=== PATIENT | female | born 1945 | race Caucasian/White ===

== ENCOUNTER → 2017-08-05 | Outpatient (CLI) | payer MEDICARE, OTHER ==
[2015-08-26 20:43] VITALS: BP 176/86
[~2017-08-05] MED LIST: AMLO5TAB2 PO; ASPI81TA50 PO; ATOR10TA PO; ESOM40CA PO; METO-239 PO; POTA10CA PO; SERT100T PO; SULF1TAB24 PO
--- NOTE | 2017-08-05 17:20 | RAD ---
LEFT UPPER EXTREMITY VENOUS DUPLEX EXAMINATION Clinical indications: Left arm pain and swelling Findings: Duplex sonography (including lamar scale evaluation and color flow and waveform spectral analysis) of the deep veins of the left upper extremity was performed. The study is technically difficult due to locked position of the left elbow and inability to raise arm. Therefore, the basilic vein and radial veins and a portion of the brachial veins are not visualized. The other veins that are visualized demonstrate normal compressibility and are patent with color Doppler flow. Therefore, there are no sonographic findings of deep venous thrombosis within these veins. Impression: Technically difficult and limited study. No deep venous thrombosis within the veins that are visualized of the left upper extremity.
--- NOTE | 2017-08-05 17:40 | RAD ---
CT study of the left elbow without contrast Clinical indications: Patient has fallen several times in the last few weeks. Left elbow joint is very swollen with bruising and pain. Technique: Noncontrast helical CT scanning of the left elbow was performed. Multiplanar 2-D reconstructions were generated in all 3 planes. PQRS Compliance Statement: One or more of the following individualized dose reduction techniques were utilized for this examination: 1. Automated exposure control 2. Adjustment of the mA and/or kV according to patient size 3. Use of iterative reconstruction technique Comparison: None available. Findings: There is a nondisplaced comminuted fracture of the olecranon process with intra-articular extension. No articular surface offset is evident. The ulnar trochlear joint compartment is well aligned otherwise. The radial capitellar joint compartment is aligned normally otherwise. No osteolytic process is seen. An elbow joint effusion is seen. Mild swelling of the olecranon bursa is seen. IMPRESSION: Posttraumatic acute fracture of the olecranon process of the left elbow.
== END | disposition home or self-care (01) ==
LOC: US 15:59
PROVIDERS: ATTEND Family Medicine
DX: M79.602 Pain in left arm (principal); R60.0 Localized edema; M25.522 Pain in left elbow; W01.0XXD Fall on same level from slipping, tripping and stumbling without subsequent striking against object, subsequent encounter
CPT/HCPCS: 73200; 93971

== ENCOUNTER → 2018-07-06 | Outpatient (CLI) | payer MEDICARE, OTHER ==
[2015-08-26 20:43] VITALS: BP 176/86
[~2018-07-06] MED LIST changes: -AMLO5TAB2 PO; +AMLO5TAB7 PO
--- NOTE | 2018-07-06 12:30 | RAD ---
EXAM: Abdomen sonogram HISTORY: Diarrhea TECHNIQUE: Sonographic imaging of the abdomen was performed. FINDINGS: The liver is enlarged. There is hepatic steatosis. Gallbladder is unremarkable. The common bile duct is normal in caliber. The kidneys are unremarkable. The pancreas is obscured due to bowel gas. The spleen is normal in size. The aorta and inferior vena cava are unremarkable. IMPRESSION: 1. Hepatic megaly and hepatic steatosis. 2. Obscured pancreas due to bowel gas. 3. Otherwise, unremarkable abdomen sonogram. Electronically signed by: Andria Grace MD (07/06/2018 12:27 PM) [id number]
== END | disposition home or self-care (01) ==
LOC: US 09:51
PROVIDERS: ATTEND Family Medicine
DX: K76.0 Fatty (change of) liver, not elsewhere classified (principal)
CPT/HCPCS: 76700

== ENCOUNTER 2020-08-07 15:25 | Inpatient (IN) | payer MEDICARE, OTHER ==
[~2020-08-07] VITALS: Ht 172.7 cm; Wt 69.5 kg
[~2020-08-07 15:25] MED LIST changes: +AMLO-186 PO; -AMLO5TAB7 PO
--- NOTE | 2020-08-07 15:53 | PHYS DOC ---
Past History Past Medical History: Other (ALONZO RODRIGUEZ APRN) Past Surgical History: Knee Replacement, Other (ALONZO RODRIGUEZ APRN) Alcohol Use: Occasionally Drug Use: None (ALONZO RODRIGUEZ APRN) General Adult EDM: Chief Complaint: SORE THROAT HPI: HPI: Patient is a 84-year-old female who presents with cough, sore throat, generalized weakness. Patient reports symptoms started 5 days ago. Patient was seen in 's office and was sent to the ED for further evaluation. Denies fever or shortness of breath. (ALONZO RODRIGUEZ APRN) Review of Systems: Review of Systems: Constitutional: Denies fever or chills Eyes: Denies change in visual acuity HENT: Denies nasal congestion, reports sore throat Respiratory: Reports cough, denies shortness of breath Cardiovascular: Denies chest pain or edema GI: Denies abdominal pain, nausea, vomiting, bloody stools or diarrhea : Denies dysuria Musculoskeletal: Denies back pain or joint pain Integument: Denies rash Neurologic: Denies headache, focal weakness or sensory changes Endocrine: Denies polyuria or polydipsia Lymphatic: Denies swollen glands Psychiatric: Denies depression or anxiety (ALONZO RODRIGUEZ APRN) Allergies: Allergies: Allergies Coded Allergies Type Severity Reaction Last Updated Verified No Known Drug Allergies 08/26/15 No (ALONZO RODRIGUEZ APRN) Physical Exam: PE: Constitutional: Well developed, well nourished, no acute distress, non-toxic appearance. [] HENT: Normocephalic, atraumatic, bilateral external ears normal, oropharynx moist, no oral exudates, nose normal. [] Eyes: PERRLA, EOMI, conjunctiva normal, no discharge. [] Neck: Normal range of motion, no tenderness, supple, no stridor. [] Cardiovascular:Heart rate regular rhythm, no murmur [] Lungs & Thorax: Bilateral breath sounds clear to auscultation [] Abdomen: Bowel sounds normal, soft, no tenderness, no masses, no pulsatile masses. [] Skin: Warm, dry, no erythema, no rash. [] Back: No tenderness, no CVA tenderness. [] Extremities: No tenderness, no cyanosis, no clubbing, ROM intact, no edema. [] Neurologic: Alert and oriented X 3, normal motor function, normal sensory function, no focal deficits noted. [] Psychologic: Affect normal, judgement normal, mood normal. [] (ALONZO RODRIGUEZ APRN) EKG: EKG: [] (ALONZO RODRIGUEZ APRN) Radiology/Procedures: Radiology/Procedures: [] (ALONZO RODRIGUEZ APRN) Heart Score: Risk Factors: Risk Factors: DM, Current or recent (<one month) smoker, HTN, HLP, family history of CAD, obesity. Risk Scores: Score 0 - 3: 2.5% MACE over next 6 weeks - Discharge Home Score 4 - 6: 20.3% MACE over next 6 weeks - Admit for Clinical Observation Score 7 - 10: 72.7% MACE over next 6 weeks - Early Invasive Strategies (ALONZO RODRIGUEZ APRN) Course & Med Decision Making: Course & Med Decision Making Pertinent Labs and Imaging studies reviewed. (See chart for details) [74 year old female presents with cough, sore throat. Dr. Collins sent patient to be seen in the ED after seeing him in the office today. Patient hypoxic on arrival. Placed on 2L NC. CTA ordered to r/o PE. Biliruben, AST/ALT elevated. CT Abdomen and Lipase ordered. Called Dr. Collins and updated him on liver enzymes. He still agrees with patient plan to be admitted to [facility]. ] (ALONZO RODRIGUEZ APRN) Dragon Disclaimer: Dragon Disclaimer: This electronic medical record was generated, in whole or in part, using a voice recognition dictation system. (ALONZO RODRIGUEZ APRN) Departure Departure: Impression: Primary Impression: Hypoxia Additional Impression: Person under investigation for COVID-19 Disposition: ADMITTED INPT THIS HOSP Condition: STABLE Referrals: FLORENCIA COLLINS MD (PCP) Attending Signature Attending Signature I have reviewed the PA/WATER TEAM LEADER's note and plan of care. I was available for consultation as needed during the patient's visit in the emergency department. I agree with the clinical impression, plan, and disposition. (LEVI MEREDITH DO) ALONZO RODRIGUEZ APRN Aug 07, 2020 15:53 LEVI MEREDITH DO Aug 08, 2020 05:46
[2020-08-07] MEDS ORDERED: IOHEXOL 350 MG/ML 100 ML VIAL. IV ONE (16:00)
[2020-08-07] MEDS ORDERED: CONTRAST GIVEN. MC PRN (16:15)
[2020-08-07 16:29] LABS: BASO % 0 % (0-3); EOS # 0.1 x10^3/uL (0.0-0.7); EOS % 2 % (0-3); HEMATOCRIT 48.9 % (36.0-47.0); HEMOGLOBIN 16.8 g/dL (12.0-15.5); LYMPH # 0.8 x10^3/uL (1.0-4.8); LYMPH % 10 % (24-48); MEAN CORPUSCULAR HEMOGLOBIN 31 pg (25-35); MEAN CORPUSCULAR HGB CONC 34 g/dL (31-37); MEAN CORPUSCULAR VOLUME 91 fL (79-100); MONO # 0.5 x10^3/uL (0.0-1.1); MONO % 7 % (0-9); NEUT # 6.2 x10^3uL (1.8-7.7); NEUT % 81 % (31-73); PLATELET COUNT 261 x10^3/uL (140-400); RED BLOOD COUNT 5.38 x10^6/uL (3.50-5.40); RED CELL DISTRIBUTION WIDTH 16.1 % (11.5-14.5); WHITE BLOOD COUNT 7.7 x10^3/uL (4.0-11.0)
[2020-08-07 16:43] LABS: MONONUCLEOSIS PATIENT NEGATIVE (NEGATIVE)
[2020-08-07] MEDS ORDERED: FAMOTIDINE 20 MG/2 ML VIAL IVP ONE (17:00)
[2020-08-07] MEDS ORDERED: KETOROLAC 15 MG/ML VIAL. IVP ONE (17:00)
[2020-08-07 17:03] LABS: INFLUENZA A PATIENT NEGATIVE (NEGATIVE); INFLUENZA B PATIENT NEGATIVE (NEGATIVE)
[2020-08-07 17:13] LABS: ALBUMIN 3.2 g/dL (3.4-5.0); ALBUMIN/GLOBULIN RATIO 0.7 (1.0-1.7); CALCIUM 10.3 mg/dL (8.5-10.1); CREATININE 1.2 mg/dL (0.6-1.0); GFR 44.2; TOTAL PROTEIN 7.6 g/dL (6.4-8.2)
[2020-08-07 17:17] LABS: POTASSIUM 2.8 mmol/L (3.5-5.1)
[2020-08-07] MEDS ORDERED: POTASSIUM CHLORIDE 20 MEQ TABLET.ER. PO ONE (17:30)
[2020-08-07] MEDS ORDERED: IV NORMAL SALINE 1,000ML 1,000 ML IV ONE (17:45)
[2020-08-07 17:58] LABS: MAGNESIUM 2.4 mg/dL (1.8-2.4)
--- NOTE | 2020-08-07 18:52 | RAD ---
Exam: CT of chest, abdomen and pelvis with contrast INDICATION: Hypoxia, concern for infection TECHNIQUE: Sequential axial images through the chest, abdomen and pelvis obtained following the admin istration of 60 mL of Isovue 370 IV contrast. Sagittal and coronal reformatted images were reconstruc murali from the axial data and reviewed. 3-D reformatted images were reconstructed from the axial data a nd reviewed. Comparisons: None FINDINGS: No enlarged mediastinal lymph nodes are identified. Heart size is normal. No pericardial effusion. Thoracic aorta has a normal course and caliber. There is extensive calcified and noncalcified plaque throughout the thoracic aorta some of which is peduncu lated and extends into the lumen in the aorta. Pulmonary artery is not enlarged. No pulmonary embolus identified within the main, lobar or segmental pulmonary arteries. Airways are patent. Mild bronchial wall thickening is noted. No consolidation or pneumothorax. Strand y opacities at dependent portion lungs likely representing atelectasis. Moderate centrilobular emphys ematous change noted probably at the upper lungs. No suspicious lung nodules are No pleural effusion or thickening. Liver, spleen, pancreas and adrenals are unremarkable. Kidneys demonstrate symmetric enhancement. No perinephric inflammation or hydronephrosis. No renal or ureteral calculi are identified. Bladder is distended and appears thin-walled. Uterus is not enlarged. No abnormal adnexal mass. Extensive diverticulosis at the sigmoid colon without evidence of acute diverticulitis. Appendix is n ot identified. No free intra-abdominal air or fluid. No obstruction. Abdominal aorta has a normal course and caliber. Abdominal vasculature is patent. No enlarged intra-abdominal lymph nodes are identified. No suspicious osseous lesions or acute fractures. Compression deformities involving the T12 and L2 manuel perior endplate. IMPRESSION: 1. No pulmonary embolus identified within the main, lobar or segmental pulmonary arteries. 2. 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 3. Extensive diverticulosis without evidence of acute diverticulitis. 4. No sequela of infection identified within the abdomen or pelvis. Exposure: One or more of the following in the visualized dose reduction techniques were utilized for this examination: 1. Automated exposure control 2. Adjustment of the MA and/or KV according to patient size 3. Use of iterative of reconstructive technique Electronically signed by: Ryan Waters MD (08/07/2020 6:50 PM) [facility]
[2020-08-07] MEDS ORDERED: MVI, ADULT NO.4 WITH VIT K 10 ML, FOLIC ACID INJ 1 MG, THIAMINE INJ 100 MG in IV NORMAL... IV ONE (20:30)
[2020-08-07] MEDS ORDERED: ELECTROLYTE (NON-ICU) PROTOCOL. MC PRN (21:30)
[2020-08-07 21:34] VITALS: BP 140/66
[2020-08-07 21:45] LABS: BILIRUBIN,URINE SMALL (NEG); CLARITY,URINE CLEAR; COLOR,URINE YELLOW; GLUCOSE,URINE NEG (NEG); NITRITE,URINE POS (NEG)
[2020-08-07] MEDS ORDERED: ZOLPIDEM 5 MG TABLET. PO PRN (21:45)
[2020-08-07] MEDS ORDERED: IV DEXTROSE 5% - 0.9 % NACL 1,000 ML IV SCH (21:45)
[2020-08-07 21:46] LABS: BACTERIA,URINE MANY /HPF (0-FEW); RBC,URINE RARE /HPF (0-2); SQUAMOUS EPITHELIAL CELL,UR FEW /LPF; WBC,URINE RARE /HPF (0-4)
--- NOTE | 2020-08-07 23:40 | NUR ---
Pt. admitted to [facility] via EMS accompanied by ER staff. Pt was assisted from gurney to bed w/ assistance of staff. VS obtained. Pt had no complaints of pain during assessment. Home medications were obtained. Pt expressed concern of getting "no sleep" being in the hospital. PRN Ambien was given as indicated. Pt was given box lunch. POC was discussed w/ verbal understanding. Call light in reach. Will continue to monitor.
[2020-08-08 05:20] VITALS: BP 119/60
[2020-08-08] MEDS: MORPHINE SULFATE 2 MG/ML DISP.SYRIN. IV PRN ×2 (05:44→08:17)
[2020-08-08 06:11] LABS: BASO % 0 % (0-3); EOS # 0.2 x10^3/uL (0.0-0.7); EOS % 3 % (0-3); HEMATOCRIT 45.1 % (36.0-47.0); HEMOGLOBIN 15.4 g/dL (12.0-15.5); LYMPH # 0.9 x10^3/uL (1.0-4.8); LYMPH % 13 % (24-48); MEAN CORPUSCULAR HEMOGLOBIN 31 pg (25-35); MEAN CORPUSCULAR HGB CONC 34 g/dL (31-37); MEAN CORPUSCULAR VOLUME 91 fL (79-100); MONO # 0.4 x10^3/uL (0.0-1.1); MONO % 6 % (0-9); NEUT # 5.5 x10^3uL (1.8-7.7); NEUT % 78 % (31-73); PLATELET COUNT 244 x10^3/uL (140-400); RED BLOOD COUNT 4.94 x10^6/uL (3.50-5.40); RED CELL DISTRIBUTION WIDTH 16.3 % (11.5-14.5); WHITE BLOOD COUNT 7.1 x10^3/uL (4.0-11.0)
[2020-08-08 06:23] LABS: CALCIUM 8.6 mg/dL (8.5-10.1); GFR 54.5
[2020-08-08 06:26] LABS: POTASSIUM 2.6 mmol/L (3.5-5.1)
[2020-08-08] MEDS: POTASSIUM CHLORIDE 10MEQ 100 ML IV SCH ×4 (07:11→16:22)
[2020-08-08] MEDS: LACTOBACILLUS RHAMNOSUS GG 1 CAPSULE. PO SCH ×2 (08:17→21:12)
[2020-08-08] MEDS: SERTRALINE 100 MG TABLET. PO SCH (08:17)
[2020-08-08] MEDS: ASPIRIN ENTERIC COATED 81 MG TABLET.DR. PO SCH (08:17)
[2020-08-08] MEDS: PANTOPRAZOLE 40 MG TABLET. PO SCH (08:17)
[2020-08-08] MEDS: amLODIPine BESYLATE 5 MG TABLET PO SCH (08:18)
[2020-08-08] MEDS: METOPROLOL SUCC 24HR ER 25 MG TAB.ER.24H. PO SCH (08:18)
[2020-08-08] MEDS: POTASSIUM CL 20MEQ D5-0.9%NACL 1,000 ML IV SCH (09:32)
[2020-08-08 09:57] VITALS: BP 122/44
[2020-08-08] MEDS ORDERED: MELA3TAB43 PO (13:24)
[2020-08-08] MEDS ORDERED: HYDR-2145 PO (13:24)
[2020-08-08] MEDS ORDERED: TIZA2CAP2 PO (13:24)
[2020-08-08] MEDS ORDERED: CARV12.5 PO (13:24)
[2020-08-08 15:09] VITALS: BP 157/68
[2020-08-08] MEDS ORDERED: ELECTROLYTE (ICU) PROTOCOL. MC PRN (18:00)
[2020-08-08 19:30] VITALS: BP 149/68
[2020-08-08] MEDS: TEMAZEPAM 15 MG CAPSULE PO SCH (21:12)
[2020-08-08 21:57] LABS: GFR 54.5; POTASSIUM 3.1 mmol/L (3.5-5.1)
[2020-08-08 22:21] VITALS: BP 162/66
[2020-08-09] MEDS: POTASSIUM CL 20MEQ D5-0.9%NACL 1,000 ML IV SCH ×2 (05:15→20:14)
[2020-08-09 05:39] VITALS: BP 159/74
[2020-08-09 06:11] LABS: ALBUMIN 2.4 g/dL (3.4-5.0); ALBUMIN/GLOBULIN RATIO 0.5 (1.0-1.7); CALCIUM 8.6 mg/dL (8.5-10.1); CREATININE 0.8 mg/dL (0.6-1.0); GFR 70.5; TOTAL BILIRUBIN 2.4 mg/dL (0.2-1.0); TOTAL PROTEIN 6.8 g/dL (6.4-8.2)
[2020-08-09 06:13] LABS: POTASSIUM 2.8 mmol/L (3.5-5.1)
[2020-08-09 06:55] LABS: BASO % 1 % (0-3); EOS # 0.3 x10^3/uL (0.0-0.7); EOS % 4 % (0-3); HEMATOCRIT 45.1 % (36.0-47.0); HEMOGLOBIN 15.3 g/dL (12.0-15.5); LYMPH # 1.3 x10^3/uL (1.0-4.8); LYMPH % 15 % (24-48); MEAN CORPUSCULAR HEMOGLOBIN 31 pg (25-35); MEAN CORPUSCULAR HGB CONC 34 g/dL (31-37); MEAN CORPUSCULAR VOLUME 91 fL (79-100); MONO # 0.5 x10^3/uL (0.0-1.1); MONO % 6 % (0-9); NEUT # 6.1 x10^3uL (1.8-7.7); NEUT % 74 % (31-73); PLATELET COUNT 247 x10^3/uL (140-400); RED BLOOD COUNT 4.94 x10^6/uL (3.50-5.40); RED CELL DISTRIBUTION WIDTH 16.8 % (11.5-14.5); WHITE BLOOD COUNT 8.2 x10^3/uL (4.0-11.0)
--- NOTE | 2020-08-09 07:00 | PN ---
DATE: 08/08/2020 SUBJECTIVE: The patient was admitted yesterday with generalized weakness, elevated liver enzymes and multiple other problems. The patient says this has been going on for a week. She was seen initially in the office, transferred here to the ER. ER admitted her for further evaluation and treatment. The patient says she is a little better today. She has been running extremely low potassiums of 2.9, 2.6 despite electrolyte replacement therapy. She is not on any diuretics. No obvious reasons for her to have that. No mention of diarrhea is noted. OBJECTIVE: GENERAL: The patient is alert and oriented. she is talking, moderate amount of discomfort. VITAL SIGNS: Blood pressure of 150/70, respiratory rate 24, pulse 80, afebrile. The patient is a very weak individual. LUNGS: Diminished, but clear. CARDIOVASCULAR: Regular sinus rhythm. ABDOMEN: Soft, nontender. BACK: The patient with marked scoliosis to her spine with left-sided contractures noted and weakness noted. A pleasant lady, however, overall. We will continue to monitor the patient, try to replace this potassium, which has been as low as 2.6. Sodium 139, BUN and creatinine 18 and 1.0 and she is on D5W with 20 of potassium as well as oral potassium supplementation. We will continue to monitor accordingly. She has had previous history of stroke with left-sided CVA and generalized weakness, deconditioning, atherosclerosis, history of elevated liver enzymes as well as alcohol use. The patient also has possible pancreatitis as well, although the CT scan did not show anything. IMPRESSION: Severe hypokalemia, weakness, pancreatitis, elevated liver enzymes, history of alcohol use and a history of CVA with left-sided hemiparesis and marked contractures. FLORENCIA BRO MD DR: CHARI/avelina JOB#: [id number] / [id number]
[2020-08-09] MEDS: POTASSIUM CHLORIDE 10MEQ 100 ML IV SCH ×4 (08:09→13:40)
[2020-08-09] MEDS: ASPIRIN ENTERIC COATED 81 MG TABLET.DR. PO SCH (08:10)
[2020-08-09] MEDS: PANTOPRAZOLE 40 MG TABLET. PO SCH (08:10)
[2020-08-09] MEDS: amLODIPine BESYLATE 5 MG TABLET PO SCH (08:10)
[2020-08-09] MEDS: SERTRALINE 100 MG TABLET. PO SCH (08:10)
[2020-08-09] MEDS: LACTOBACILLUS RHAMNOSUS GG 1 CAPSULE. PO SCH ×2 (08:10→21:12)
[2020-08-09] MEDS: METOPROLOL SUCC 24HR ER 25 MG TAB.ER.24H. PO SCH (08:11)
[2020-08-09] MEDS: MORPHINE SULFATE 2 MG/ML DISP.SYRIN. IV PRN (08:27)
[2020-08-09 11:10] VITALS: BP 158/74
[2020-08-09 15:22] VITALS: BP 133/59
[2020-08-09 19:43] VITALS: BP 163/71
[2020-08-09] MEDS: TEMAZEPAM 15 MG CAPSULE PO SCH (21:12)
[2020-08-09 22:39] VITALS: BP 145/77
[2020-08-10] MEDS: POTASSIUM CL 20MEQ D5-0.9%NACL 1,000 ML IV SCH ×2 (00:58→14:11)
[2020-08-10 05:42] VITALS: BP 153/73
[2020-08-10 07:43] LABS: CALCIUM 8.5 mg/dL (8.5-10.1); CREATININE 0.8 mg/dL (0.6-1.0); GFR 70.5; POTASSIUM 3.7 mmol/L (3.5-5.1)
[2020-08-10] MEDS: amLODIPine BESYLATE 5 MG TABLET PO SCH (09:23)
[2020-08-10] MEDS: SERTRALINE 100 MG TABLET. PO SCH (09:23)
[2020-08-10] MEDS: LACTOBACILLUS RHAMNOSUS GG 1 CAPSULE. PO SCH ×2 (09:23→21:07)
[2020-08-10] MEDS: ASPIRIN ENTERIC COATED 81 MG TABLET.DR. PO SCH (09:24)
[2020-08-10] MEDS: METOPROLOL SUCC 24HR ER 25 MG TAB.ER.24H. PO SCH (09:24)
[2020-08-10] MEDS: PANTOPRAZOLE 40 MG TABLET. PO SCH (09:24)
[2020-08-10 11:05] VITALS: BP 164/94
[2020-08-10 11:06] VITALS: BP 124/53
--- NOTE | 2020-08-10 14:05 | PN ---
DATE: SUBJECTIVE: A 74-year-old female in with ____ previous strokes, severe hypokalemia, weakness, pancreatitis, severe elevated liver enzymes, probably from possibly drinking. The patient says she is feeling a little bit better and through exhaustive means she got her potassium up to 3.1, but it keeps dropping down to in the ____ 2 range. She will need massive supplemental potassium and probably has a deficiency of some hormonal system that causes her to lose her potassium since she is really not on any medication that should cause a loss of potassium to the degree of which she is having it. OBJECTIVE: GENERAL: The patient is alert. She feels a little better. She is running low-grade temperature was 133/59, respiratory rate 18, pulse 86, temperature 99.3. LABORATORY DATA: The patient's urine culture did show gram-negative rods. We will probably have to switch her antibiotic and make further evaluation on that as indicated. Blood cultures showed no growth. IMPRESSION: Severe hypokalemia, weakness, pancreatitis, elevated liver enzymes, history of alcohol abuse, history of cerebrovascular accident with left-sided hemiparesis, marked contractures, urinary tract infection, gram-negative. FLORENCIA BRO MD DR: CHARI/avelina JOB#: [id number] / [id number]
--- NOTE | 2020-08-10 14:23 | NUR ---
NSG NOTE; RETURN TO THIN LIQUIDS PER DR BRO PT HAS BEEN TOLERATING THIN LIQUIDS WITHOUT COUGHING OR CHOKING Addendum: 08/10/20 at 1425 by JADA HUYNH RN AFTER TRIAL AT BEDSIDE BY ME
[2020-08-10 14:32] VITALS: BP 155/83
[2020-08-10] MEDS ORDERED: QUEtiapine 50 MG TABLET. PO PRN (19:15)
[2020-08-10 20:48] VITALS: BP 154/83
[2020-08-10] MEDS: QUEtiapine 50 MG TABLET. PO SCH (21:07)
[2020-08-11] MEDS: POTASSIUM CL 20MEQ D5-0.9%NACL 1,000 ML IV SCH ×2 (05:51→20:20)
[2020-08-11 06:36] VITALS: BP 168/85
[2020-08-11 06:49] LABS: CALCIUM 9.2 mg/dL (8.5-10.1); CREATININE 0.8 mg/dL (0.6-1.0); GFR 70.5; POTASSIUM 3.9 mmol/L (3.5-5.1)
[2020-08-11] MEDS: LACTOBACILLUS RHAMNOSUS GG 1 CAPSULE. PO SCH ×2 (08:32→20:52)
[2020-08-11] MEDS: SERTRALINE 100 MG TABLET. PO SCH (08:32)
[2020-08-11] MEDS: METOPROLOL SUCC 24HR ER 25 MG TAB.ER.24H. PO SCH (08:32)
[2020-08-11] MEDS: PANTOPRAZOLE 40 MG TABLET. PO SCH (08:32)
[2020-08-11] MEDS: amLODIPine BESYLATE 5 MG TABLET PO SCH (08:32)
[2020-08-11] MEDS: ASPIRIN ENTERIC COATED 81 MG TABLET.DR. PO SCH (08:33)
[2020-08-11 10:50] VITALS: BP 126/60
--- NOTE | 2020-08-11 12:52 | PN ---
DATE: SUBJECTIVE: A 74-year-old female in with multiple medical problems, severe hypokalemia, weakness, pancreatitis, elevated liver enzymes. The patient is resting fairly comfortably, making fairly good progress. Potassium is up to 3.9. Blood pressure 128/60, respiratory rate 20, pulse 80, afebrile. The patient is alert, little bit more oriented, still has problems with her weakness overall. She will be continued to be monitored carefully and make further evaluation. She continues to make fairly good progress. Did discuss with her the need for physical and occupational therapy, possible rehab somewhere as she does have marked weakness. We will continue to monitor her potassium with her severe hypokalemia and generalized weakness. FLORENCIA BRO MD DR: CHARI/avelina JOB#: [id number] / [id number]
[2020-08-11 15:15] VITALS: BP 154/76
[2020-08-11 18:44] VITALS: BP 152/78
[2020-08-11] MEDS: QUEtiapine 50 MG TABLET. PO SCH (20:52)
[2020-08-11 23:34] VITALS: BP 143/80
[2020-08-12 05:56] VITALS: BP 138/76
[2020-08-12 07:26] LABS: CALCIUM 8.7 mg/dL (8.5-10.1); CREATININE 0.8 mg/dL (0.6-1.0); GFR 70.5
[2020-08-12] MEDS: ASPIRIN ENTERIC COATED 81 MG TABLET.DR. PO SCH (07:49)
[2020-08-12] MEDS: LACTOBACILLUS RHAMNOSUS GG 1 CAPSULE. PO SCH ×2 (07:49→21:09)
[2020-08-12] MEDS: amLODIPine BESYLATE 5 MG TABLET PO SCH (07:49)
[2020-08-12] MEDS: PANTOPRAZOLE 40 MG TABLET. PO SCH (07:49)
[2020-08-12] MEDS: SERTRALINE 100 MG TABLET. PO SCH (07:49)
[2020-08-12] MEDS: METOPROLOL SUCC 24HR ER 25 MG TAB.ER.24H. PO SCH (07:49)
[2020-08-12] MEDS: POTASSIUM CL 20MEQ D5-0.9%NACL 1,000 ML IV SCH ×2 (07:50→18:36)
--- NOTE | 2020-08-12 10:47 | RAD ---
EXAM: Abdomen sonogram. HISTORY: Elevated liver function laboratory value. TECHNIQUE: Sonographic imaging of the abdomen was performed. COMPARISON: 07/06/2018. FINDINGS: The liver is upper normal in size. No focal hepatic lesion is seen. The gallbladder is unre markable. The common bile duct is normal in caliber. The kidneys are normal in size. There is no geoffrey d or cystic renal lesion. There is no hydronephrosis. The pancreas is unremarkable. The spleen is mil dly enlarged, measuring 14.0 cm. IMPRESSION: 1. Upper normal liver size. The previously suspected hepatic steatosis is not appreciated on this exa m. 2. Mild splenomegaly. 3. No acute sonographic finding. Electronically signed by: Andria Grace MD (08/12/2020 10:44 AM) [facility]
[2020-08-12 11:25] VITALS: BP 138/82
[2020-08-12 15:39] VITALS: BP 125/61
--- NOTE | 2020-08-12 19:15 | PN ---
DATE: SUBJECTIVE: The patient came in with severe dehydration, hypokalemia, generalized weakness. The patient still is having some weakness and agitation, had to give her some Ativan. Other than that, the patient seems to be resting fairly comfortably, making fairly good progress after the Ativan. The patient had her abdominal ultrasound which looks like hepatic steatosis, but no other abnormality, least affecting the liver, so it is probably cirrhosis of the liver with marked elevation of liver enzymes that was discussed with her over the phone. The patient did have a drinking problem at one time. Her potassium stayed up around 4 from a low of 2.8 and sodium is looking good as well. The patient otherwise seems to be resting fairly comfortably and we are making good progress. She also had pancreatitis as well. OBJECTIVE: VITAL SIGNS: Blood pressure 120/60, respiratory rate 20, pulse 80, afebrile. She is on 1 liter at 92%. GENERAL: The patient is alert. She is a little bit more cognizant than she has been with her speech, is a little bit more understandable. LUNGS: Otherwise, lungs are diminished. CARDIOVASCULAR: Stable. ABDOMEN: Soft, nontender. MUSCULOSKELETAL: Marked kyphosis, scoliosis to the spine. IMPRESSION: Acute pancreatitis, severe hypokalemia, marked elevation of liver enzymes, history of alcohol abuse, moderate protein malnutrition. PLAN: Continue to encourage activity, increase diet and make further evaluation on her as indicated per those results. FLORENCIA BRO MD DR: CHARI/avelina JOB#: [id number] / [id number]
[2020-08-12 19:53] VITALS: BP 141/69
[2020-08-12] MEDS: QUEtiapine 50 MG TABLET. PO SCH (21:09)
[2020-08-12 22:57] VITALS: BP 135/81
--- NOTE | 2020-08-13 03:23 | NUR ---
Nursing note: Pt rested comfortably throughout shift, room air, VS as charted.
[2020-08-13] MEDS: POTASSIUM CL 20MEQ D5-0.9%NACL 1,000 ML IV SCH ×2 (03:48→07:55)
[2020-08-13 06:26] VITALS: BP 153/79
[2020-08-13] MEDS: SERTRALINE 100 MG TABLET. PO SCH (07:53)
[2020-08-13] MEDS: METOPROLOL SUCC 24HR ER 25 MG TAB.ER.24H. PO SCH (07:54)
[2020-08-13] MEDS: ASPIRIN ENTERIC COATED 81 MG TABLET.DR. PO SCH (07:54)
[2020-08-13] MEDS: LACTOBACILLUS RHAMNOSUS GG 1 CAPSULE. PO SCH ×2 (07:54→20:19)
[2020-08-13] MEDS: amLODIPine BESYLATE 5 MG TABLET PO SCH (07:54)
[2020-08-13] MEDS: PANTOPRAZOLE 40 MG TABLET. PO SCH (07:54)
--- NOTE | 2020-08-13 09:41 | RAD ---
XR CHEST 1V INDICATION: Reason: INCREASED NEED FOR o2 SUPPLEMENTATION / Spl. Instructions: / History: . COMPARISON STUDY: CT 08/07/2020. FINDINGS: Lungs: Normal lung volume. Bilateral ill-defined opacities. Distinct pulmonary vasculature. Pleura: No pleural effusion or pneumothorax. Heart and Mediastinum: The cardiomediastinal silhouette is normal. Atherosclerosis of the thoracic ao rta. IMPRESSION: Bilateral ill-defined opacities may reflect interstitial edema or infection. Electronically signed by: Helder Bolton MD (08/13/2020 9:38 AM) [id number]
[2020-08-13] MEDS ORDERED: BISACODYL 10 MG SUPP.RECT PR PRN (09:45)
[2020-08-13 10:01] LABS: CALCIUM 8.8 mg/dL (8.5-10.1); CREATININE 0.9 mg/dL (0.6-1.0); GFR 61.5; POTASSIUM 4.2 mmol/L (3.5-5.1)
[2020-08-13 10:30] VITALS: BP 156/77
[2020-08-13] MEDS ORDERED: IPRATRPIUM/ALBUTEROL 0.5/2.5MG 3 ML NEBU. NEB SCH (12:00)
[2020-08-13] MEDS: IPRATROPIUM/ALBUTEROL 20/100mcg/INH INHALER. INH SCH ×2 (13:20→16:00)
[2020-08-13 14:49] VITALS: BP 125/73
[2020-08-13] MEDS: IPRATRPIUM/ALBUTEROL 0.5/2.5MG 3 ML NEBU. NEB SCH ×2 (17:15→21:18)
[2020-08-13 19:50] VITALS: BP 162/80
--- NOTE | 2020-08-13 20:02 | PN ---
DATE: SUBJECTIVE: A 74-year-old female in with severe hypokalemia, generalized weakness. The patient had pancreatitis. The patient continues to make fairly good progress overall, but still very weak, somewhat agitated. OBJECTIVE: VITAL SIGNS: Blood pressure 125/73, respiratory rate 18, pulse 90, afebrile. GENERAL: The patient is alert and oriented. She is on 3 liters at 92%. HEENT: The patient's head was atraumatic, normocephalic. The patient does have a right-sided CVA, left-sided hemiparesis and we will continue to monitor on that. LUNGS: Diminished, primarily in the bases. CARDIOVASCULAR: Regular sinus rhythm. ABDOMEN: Protuberant, soft, nontender. EXTREMITIES: No clubbing, cyanosis or edema. Needs a bowel movement. We will go ahead and give her a Dulcolax suppository on that. LABORATORY DATA: Otherwise, her labs looked improved. Her potassium is staying at 4.2 and liver enzyme of course is still elevated, no doubt but probably has some cirrhosis of the liver. IMPRESSION: Therefore, severe hypokalemia, weakness, pancreatitis, elevated liver enzymes, cirrhosis of the liver, history of cerebrovascular accident with left-sided hemiparesis, marked contracture, urinary tract infection, gram-negative, which she is receiving IV antibiotic therapy for that. FLORENCIA BRO MD DR: CHARI/avelina JOB#: [id number] / [id number]
[2020-08-13] MEDS: NYSTATIN TOPICAL POWDER 15GM BOTTLE. TP SCH (20:19)
[2020-08-13] MEDS: QUEtiapine 50 MG TABLET. PO SCH (20:19)
[2020-08-13 23:40] VITALS: BP 161/76
[2020-08-14] MEDS: IPRATRPIUM/ALBUTEROL 0.5/2.5MG 3 ML NEBU. NEB SCH (05:20)
[2020-08-14 06:27] VITALS: BP 118/70
[2020-08-14 06:47] LABS: CALCIUM 8.9 mg/dL (8.5-10.1); CREATININE 0.9 mg/dL (0.6-1.0); GFR 61.5; POTASSIUM 3.9 mmol/L (3.5-5.1)
[2020-08-14] MEDS: LACTOBACILLUS RHAMNOSUS GG 1 CAPSULE. PO SCH (08:24)
[2020-08-14] MEDS: ASPIRIN ENTERIC COATED 81 MG TABLET.DR. PO SCH (08:24)
[2020-08-14] MEDS: NYSTATIN TOPICAL POWDER 15GM BOTTLE. TP SCH (08:24)
[2020-08-14] MEDS: amLODIPine BESYLATE 5 MG TABLET PO SCH (08:24)
[2020-08-14] MEDS: SERTRALINE 100 MG TABLET. PO SCH (08:24)
[2020-08-14] MEDS: PANTOPRAZOLE 40 MG TABLET. PO SCH (08:24)
[2020-08-14] MEDS: METOPROLOL SUCC 24HR ER 25 MG TAB.ER.24H. PO SCH (08:24)
[2020-08-14] MEDS ORDERED: QUET50TA PO (09:30)
[2020-08-14] MEDS ORDERED: LACT1CAP19 PO (09:30)
[2020-08-14] MEDS ORDERED: NYST60PO TP (09:30)
[2020-08-14] MEDS ORDERED: BISA10SU4 PR (09:30)
[2020-08-14] MEDS ORDERED: SULF1TAB24 PO (09:30)
--- NOTE | 2020-08-14 09:33 | DISCH ---
HOME HEALTH DISCHARGE/MEDS DISCHARGE INFORMATION: Discharge Date: Aug 14, 2020 Final Diagnosis: Problems Medical Problems: (1) Hypoxia Status: Acute (2) Person under investigation for COVID-19 Status: Acute Condition on Discharge: Stable CODE STATUS: Code Status: Full HOME HEALTH: Face to Face: I certify this patient is under my care and that I, or a nurse practitioner or physician's library circulation assistant working with me, had a face to face encounter that meets the physician face to face encounter requirements with this patient on 08/14/2020. Medical Condition(s): CVA, HTN, Other (UTI, Hypokalemia,pancreatitis, weakness/HX of left sided CVA) Intermediate For: Assess Cardiopulm Status, Assess & Educate Safety, Assess/Skilled Observatio, Medication Management, Pain Management Physical Therapy For: Evalulation/Treatment Occupational Therapy For: Evaluation/Treatment POST DISCHARGE ORDERS: Activity Instructions for Disc: Activity as tolerated Weight Bearing Status after Di: No restrictions DIET AFTER DISCHARGE: Cardiac CHECKS AFTER DISCHARGE: Checks after discharge: Check blood press - daily CERTIFICATION STATEMENT: Certification Statement: Based on the above finding, I certify that this patient is confined to the home and needs intermittent usp care, physical therapy and/or speech therapy, or continues to need occupational therapy.~ This patient is under my care, and I have initiated the establishment of the plan of care.~ This patient will be followed by myself or a community physician who will periodically review the plan of care. DISCHARGE MEDICATIONS: Home Meds Reported Medications Hydrochlorothiazide (HYDROCHLOROTHIAZIDE TABLET ) 25 Mg Tablet, 25 MG PO DAILY for DIURETIC NOT GIVEN IN THE HOSPITAL NEXT DOSE DUE: DATE: RESTART TOMORROW TIME: AM 08/08/20 Melatonin (MELATONIN) 3 Mg Tab.rapdis, 1 TAB PO QHS for SLEEP AID NOT GIVEN IN THE HOSPITAL NEXT DOSE DUE: DATE: RESTART TONITE TIME: AT BEDTIME 08/08/20 Tizanidine HCl (Tizanidine HCl) 2 Mg Capsule, 2 MG PO HS for MUSCLE RELAXANT NOT GIVEN IN THE HOSPITAL NEXT DOSE DUE: DATE: RESTART TONITE TIME: AT BEDTIME 08/08/20 Carvedilol (COREG ) 12.5 Mg Tablet, 12.5 MG PO DAILY08 for HIGH BLOOD PRESSURE NOT GIVEN IN THE HOSPITAL NEXT DOSE DUE: DATE: RESTART TOMORROW TIME: AM 08/08/20 Potassium Chloride (POTASSIUM CHLORIDE) 10 Meq Capsule.er, 10 MEQ PO DAILY for SUPPLEMENT NOT GIVEN IN THE HOSPITAL NEXT DOSE DUE: DATE: RESTART TOMORROW TIME: AM 08/26/15 Sertraline Hcl (ZOLOFT) 100 Mg Tablet, 100 MG PO DAILY for DEPRESSION LAST DOSE GIVEN: DATE: TODAY TIME: AM NEXT DOSE DUE: DATE: TOMORROW TIME: AM 08/26/15 Metoprolol Succinate (METOPROLOL SUCCINATE ( XL )) 25 Mg Tab.er.24h, 25 MG PO DAILY for HIGH BLOOD PRESSURE LAST DOSE GIVEN: DATE: TODAY TIME: AM NEXT DOSE DUE: DATE: TOMORROW TIME: AM 08/26/15 Aspirin (ASPIR-LOW) 81 Mg Tablet.dr, 81 MG PO DAILY for HEART HEALTH LAST DOSE GIVEN: DATE: TODAY TIME: AM NEXT DOSE DUE: DATE: TOMORROW TIME: AM 08/26/15 Esomeprazole Magnesium (NEXIUM CAPSULE) 40 Mg Capsule.dr, 40 MG PO DAILY for PREVENT HEARTBURN LAST DOSE GIVEN: DATE: TODAY TIME: BEFORE BREAKFAST NEXT DOSE DUE: DATE: TOMORROW TIME: BEFORE BREAKFAST 08/26/15 Amlodipine Besylate (AMLODIPINE BESYLATE) 5 Mg Tablet, 5 MG PO DAILY for HIGH BLOOD PRESSURE LAST DOSE GIVEN: DATE: TODAY TIME: AM NEXT DOSE DUE: DATE: TOMORROW TIME: AM 08/26/15 Sulfamethoxazole/Trimethoprim (BACTRIM DS TABLET) 1 Each Tablet, 1 EACH PO BID for ANTIBIOTIC NOT GIVEN IN THE HOSPITAL NEXT DOSE DUE: DATE: TIME: 08/26/15 Discontinued Reported Medications Atorvastatin Calcium (LIPITOR) 10 Mg Tablet, 10 MG PO q hs for FOR CHOLESTEROL, #30 TAB 0 Refills 08/26/15 FLORENCIA BRO MD Aug 14, 2020 09:33
--- NOTE | 2020-08-14 10:14 | NUR ---
DISCHARGE NOTE-PT SET FOR DISCHARGE TO HOME TODAY WITH HOME HEALTH SERVICES. PIV DISCONTINUED AT THIS TIME. WILL COMMUNITY SERVICE COORDINATOR, STAFF WILL BE NEEDED TO TXFR PT INTO PRIVATE VEHICLE. MEDICATION LIST PREPARED, MEDS SENT TO [facility] BY DR BRO. ALL PERSONAL POSSESSIONS GATHERED ET READY TO GO WITH PATIENT UPON 'S ARRIVAL.
[2020-08-14 10:36] VITALS: BP 116/68
--- NOTE | 2020-08-14 11:21 | NUR ---
ADDEMNDUM TO DISCHARGE: PT STATES THAT NOT ONLY DID SHE HAVE THE (L)LE BRACE, BUT SHE ALSO HAD A SPECIAL SHOE FOR HER (R) FOOT, ALSO MADE BY [employer]. WILL CALL DOWN TO ED TO ATTEMPT TO FIND, PATIENT DID NOT ARRIVE ON FLOOR WITH IT.
== END 2020-08-14 11:25 | disposition home health service (06) | DRG 640 ==
LOC: ER 15:25 → 1 SOUTH 20:48
PROVIDERS: ADMIT Family Medicine; ATTEND Family Medicine
DX: E87.6 Hypokalemia (principal); K85.90 Acute pancreatitis without necrosis or infection, unspecified; N39.0 Urinary tract infection, site not specified; E44.0 Moderate protein-calorie malnutrition; I69.354 Hemiplegia and hemiparesis following cerebral infarction affecting left non-dominant side; E86.0 Dehydration; K74.60 Unspecified cirrhosis of liver; R09.02 Hypoxemia; Z96.659 Presence of unspecified artificial knee joint; Z68.23 Body mass index [BMI] 23.0-23.9, adult; Z20.822 Contact with and (suspected) exposure to COVID-19; F10.10 Alcohol abuse, uncomplicated
CPT/HCPCS: 36415; 71045; 71275; 74177; 76700; 80048; 80053; 81001; 82977; 83605; 83690; 83735; 85025; 85379; 85610; 85730; 86308; 86705; 86709; 86803; 87040; 87070; 87077; 87086; 87186; 87340; 87804; 87880; 94640; G0480; J0696; J1956; J2060; J2270; J3480; J7042; Q9967; 99285-25; J7030

== ENCOUNTER 2021-03-05 03:48 | Emergency (ER) | payer MEDICARE ==
[~2021-03-05] VITALS: Ht 172.7 cm; Wt 69.5 kg
[~2021-03-05 03:48] MED LIST changes: +BISA10SU4 PR; +CARV12.5 PO; +HYDR-2145 PO; +LACT1CAP19 PO; +MELA3TAB43 PO; +NYST60PO TP; +QUET50TA PO; +TIZA2CAP2 PO
--- NOTE | 2021-03-05 03:57 | PHYS DOC ---
Past History Past Medical History: Hypertension, Stroke Past Surgical History: Hysterectomy, Knee Replacement Alcohol Use: Heavy Drug Use: None Adult General HPI HPI Patient is a 75-year-old female with a past medical history significant for stroke who presents with a chief complaint of right hip pain, 7 out of 10, sharp in nature and has been going on about 8 days. Review of Systems Review of Systems Review of systems otherwise unremarkable except noted in HPI. Allergies Allergies Allergies Coded Allergies Type Severity Reaction Last Updated Verified No Known Drug Allergies 08/26/15 No Physical Exam Physical Exam Constitutional: Well developed, well nourished, no acute distress, non-toxic appearance. [] HENT: Normocephalic, atraumatic, Eyes: conjunctiva normal, no discharge. [] Neck: Normal range of motion, Cardiovascular:Heart rate regular rhythm, no murmur [] Lungs & Thorax: Bilateral breath sounds clear to auscultation [] Abdomen: Bowel sounds normal, soft, no tenderness, no masses, no pulsatile masses. [] Skin: Multiple areas of what appears to be fungal/candidal rash on pannus and inferior breast line Back: No tenderness, Extremities: Tenderness at and around the right hip and greater trochanter, with mild pain on passive range of motion but none with knee extension and flexion, neurovascular exam intact Neurologic: Alert and oriented X 3, patient with previous stroke and left sided deficit as well as some aphasia Psychologic: Affect normal, judgement normal, mood normal. [] EKG EKG [] Radiology/Procedures Radiology/Procedures [] Heart Score C/O Chest Pain: No Risk Factors: Risk Factors: DM, Current or recent (<one month) smoker, HTN, HLP, family history of CAD, obesity. Risk Scores: Risk Factors: DM, Current or recent (<one month) smoker, HTN, HLP, family history of CAD, obesity. Course & Med Decision Making Course & Med Decision Making Patient is a 75-year-old female who presents with a chief complaint of right hip and leg pain after falling from her wheelchair about 3 weeks ago Vital signs notable for hypertension. Physical exam noted above. Patient given pain medication. Given fluconazole. Given nystatin cream. Imaging with no new acute osseous abnormalities. On reassessment patient stated she felt better and was ready to go home. Discussed pain management at home and given education. Advised to call primary care physician in the morning. Gave return precautions to the ED. Patient grateful, verbalized understanding and agreed with plan of discharge. [] Dragon Disclaimer Dragon Disclaimer This electronic medical record was generated, in whole or in part, using a voice recognition dictation system. Departure Departure: Impression: Primary Impression: Right hip pain Additional Impression: Right leg pain Referrals: FLORENCIA BRO MD (PCP) Patient Instructions: Acetaminophen tablets or caplets, Ibuprofen tablets and capsules, Lidocaine dermal patch, Nystatin skin cream or ointment, RICE - Routine Care for Injuries Additional Instructions: Thank you for coming into the emergency department tonight and allowing us to take care of you. Please read the attached information carefully to go back over some of the things we discussed in some pain management strategies at home. Please call your primary care physician first thing in the morning to update on your ED visit and set up a follow-up visit. Please come back to the ED immediately with new or concerning symptoms as discussed. Problem Qualifiers JIGNESH TRINH MD Mar 05, 2021 03:56
[2021-03-05] MEDS ORDERED: IBUPROFEN 400 MG TABLET. PO ONE (04:15)
[2021-03-05] MEDS ORDERED: ACETAMINOPHEN 325 MG TABLET PO ONE (04:15)
[2021-03-05] MEDS ORDERED: MORPHINE SULFATE 4 MG/ML DISP.SYRIN. IM ONE (04:15)
[2021-03-05] MEDS ORDERED: FLUCONAZOLE 100 MG TABLET. PO ONE ×2 (04:45→05:00)
[2021-03-05] MEDS ORDERED: NYSTATIN 100,000 UNIT/GM TOPICAL CREAM 15GM TUBE. TP ONE ×2 (04:45→05:00)
--- NOTE | 2021-03-05 05:25 | RAD ---
EXAMINATION: Bilateral hips and right femur radiographs. VIEWS: Single view of the pelvis, 2 views of the right hip and 2 views of the right femur COMPARISON: None INDICATION:75 years, Female, fall. FINDINGS: No acute fracture, dislocation or subluxation. No bone erosion or periosteal reaction. Left hip and r ight knee arthroplasties are intact. No soft tissue swelling or joint effusion. Large amount of stool in the rectum. IMPRESSION: 1. No acute osseous abnormality in the hips or right femur. 2. Large amount of stool in the rectum. Electronically signed by: Vikki Way MD (03/05/2021 5:22 AM) LEYDA
[2021-03-05 05:45] VITALS: BP 170/90
== END 2021-03-05 05:45 | disposition home or self-care (01) ==
LOC: ER 03:48
DX: M25.551 Pain in right hip (principal); M79.604 Pain in right leg; I10 Essential (primary) hypertension; F10.20 Alcohol dependence, uncomplicated; Z86.73 Personal history of transient ischemic attack (TIA), and cerebral infarction without residual deficits; Y90.9 Presence of alcohol in blood, level not specified
CPT/HCPCS: 73502; 73552; 96372; 99284; J2270

== ENCOUNTER 2021-05-14 12:32 | Inpatient (IN) | payer MEDICARE, OTHER ==
[~2021-05-14] VITALS: Ht 172.7 cm; Wt 56.4 kg
[~2021-05-14 12:32] MED LIST changes: -QUET50TA PO; +QUET50TA3 PO
[2021-05-14] MEDS ORDERED: IV NORMAL SALINE 1,000ML 1,000 ML IV ONE (12:45)
--- NOTE | 2021-05-14 13:12 | PHYS DOC ---
Past History Past Medical History: Hypertension, Stroke Past Surgical History: Hip Replacement, Hysterectomy, Knee Replacement Alcohol Use: None Drug Use: None General Adult EDM: Chief Complaint: RECTAL BLEED HPI: HPI: 75-year-old female presents with rectal bleeding. She has been having bloody stools for the last few days. Yesterday and today, she has had dark red blood in her diaper first thing in the morning. Her brought her in today because this morning it seemed like a lot of dark blood. She also had some bright blood when she wiped. She denies any significant pain. She does feel more weak than her baseline. Her primary care physician, Dr. Bro recommended she come the emergency room. She denies fever or chills. She has no history of stomach ulcer, though she is on pantoprazole daily. No daily NSAID use. Patient has a history of stroke from which she has some deficits. She is at her baseline according to her spouse. Review of Systems: Review of Systems: Constitutional: Denies fever or chills. Weakness Eyes: Denies change in visual acuity HENT: Denies nasal congestion or sore throat Respiratory: Denies cough or shortness of breath Cardiovascular: Denies chest pain or edema GI: bloody stools. Denies abdominal pain, nausea, vomiting, or diarrhea : Denies dysuria Musculoskeletal: Denies back pain or joint pain Integument: Denies rash Neurologic: Denies headache, focal weakness or sensory changes Endocrine: Denies polyuria or polydipsia Lymphatic: Denies swollen glands Psychiatric: Denies depression or anxiety Current Medications: Current Meds: Current Medications Medications (Trade) Dose Ordered Sig/Karo Start Time Stop Time Status Last Admin Dose Admin Sodium Chloride 1,000 ml @ 1,000 mls/hr 1X ONCE 05/14/21 12:45 05/14/21 13:44 05/14/21 12:59 1,000 MLS/HR Allergies: Allergies: Allergies Coded Allergies Type Severity Reaction Last Updated Verified No Known Drug Allergies 08/26/15 No Physical Exam: PE: Constitutional: Well developed, well nourished, no acute distress, non-toxic appearance. [] HENT: Normocephalic, atraumatic, bilateral external ears normal, oropharynx moist, no oral exudates, nose normal. [] Eyes: PERRLA, EOMI, conjunctiva normal, no discharge. [] Neck: Normal range of motion, no tenderness, supple, no stridor. [] Cardiovascular:Heart rate 79, regular rhythm, no murmur [] Lungs & Thorax: Bilateral breath sounds clear to auscultation [] Abdomen: Bowel sounds normal, soft, no tenderness, no masses, no pulsatile masses. [] Skin: Warm, dry, no erythema, no rash. [] Back: No tenderness, no CVA tenderness. [] Extremities: No tenderness, no cyanosis, no clubbing. In a special orthotic brace in the right lower leg. [] Neurologic: Alert and oriented X 3, normal motor function, normal sensory function, no focal deficits noted. [] Psychologic: Affect normal, judgement normal, mood normal. Rectal: Normal external exam, stool not grossly bloody [] Current Patient Data: Vital Signs: Vital Signs Date Time Temp Pulse Resp B/P (MAP) Pulse Ox O2 Delivery O2 Flow Rate FiO2 05/14/21 12:39 97.9 77 18 157/82 (107) 93 Room Air EKG: EKG: [] Radiology/Procedures: Radiology/Procedures: [] Impressions: EXAM: Abdomen and pelvis CT with intravenous contrast. HISTORY: Rectal bleeding. Constipation. TECHNIQUE: Computed tomographic images of the abdomen and pelvis were obtained following the administration of intravenous contrast. Multiplanar reformatting was performed. *One or more of the following individualized dose reduction techniques were utilized for this examination: 1. Automated exposure control. 2. Adjustment of the mA and/or kV according to patient size. 3. Use of iterative reconstruction technique. COMPARISON: 08/07/2020. FINDINGS: Evaluation of the lower thorax demonstrates left greater than right lower lobe interstitial infiltrate, atelectasis or scarring. There is emphysema. There is coronary artery atherosclerosis. There is a 9 mm hypodense lesion within the hepatic dome. There is a 3 mm hypodense lesion within the lateral right hepatic lobe. There is slight hyperdensity along the dependent portion of the gallbladder which may be due to volume averaging of the gallbladder wall or cholelithiasis. The pancreas is unremarkable. The spleen is mildly enlarged. There is bilateral renal cortical thinning and scarring. There is a small simple cyst within the anterior mid zone of the left kidney. There is no suspicious renal lesion. There is no hydronephrosis. There is no appendicitis. There is a moderate amount of colonic stool. There is a large amount of formed stool within the rectum. There is rectal wall thickening and surrounding fatty stranding. There is distal colonic diverticulosis. There is urinary bladder wall thickening. There is a small amount of free fluid within the left lower quadrant. There is calcified atherosclerotic plaque involving the aorta and aortic branch vessels. There is no lymphadenopathy. There is a transitional lumbosacral segment. This is considered a partially sacralized L5 segment based on this dictation. There is partial ankylosis of the sacralized right aspect of L5 with the sacrum. Based on this numbering system, there are chronic appearing compression fractures of T12, L2, L3 and L4. There is a left hip arthroplasty. IMPRESSION: 1. Large amount of formed stool within the rectum likely due to fecal impaction. There is superimposed rectal wall thickening and surrounding inflammatory changes likely due to proctitis. 2. Distal colonic diverticulosis. There is no convincing diverticulitis. 3. Small hypodense lesions within the liver. In the absence of known malignancy, these are likely cysts or hemangiomas. These may be too small to characterize sonographically. 4. Mild splenomegaly. 5. Renal cortical thinning and scarring and small simple left renal cyst. Follow-up is not routinely performed for simple cysts. 6. Pulmonary emphysema with left greater than right lower lobe or interstitial infiltrate, atelectasis or scarring. This is decreased compared to the prior exam. 7. Urinary bladder wall thickening. This may be due to cystitis. Correlate with urinalysis. 8. Possible cholelithiasis or gallbladder sludge. 9. Multiple chronic appearing vertebral compression fractures. Electronically signed by: Andria Beck MD (05/14/2021 2:18 PM) [id number] DICTATED AND SIGNED BY: ANDRIA BECK MD DATE: 05/14/21 1410 CC: YNES JACOBO DO; FLORENCIA BRO MD ~MTH0 0 Heart Score: C/O Chest Pain: N/A Risk Factors: Risk Factors: DM, Current or recent (<one month) smoker, HTN, HLP, family history of CAD, obesity. Risk Scores: Score 0 - 3: 2.5% MACE over next 6 weeks - Discharge Home Score 4 - 6: 20.3% MACE over next 6 weeks - Admit for Clinical Observation Score 7 - 10: 72.7% MACE over next 6 weeks - Early Invasive Strategies Course & Med Decision Making: Course & Med Decision Making Pertinent Labs and Imaging studies reviewed. (See chart for details) The patient is not anemic as her hemoglobin is 18.6. She appears hemoconcentrated. I will treat her with normal saline bolus. The patient's CT scan is significant for a large amount of retained stool. We will start with an enema since the patient is having some stool in her diaper in the ER. I spoke with Dr. Bro and he has accepted the patient for admission. She was stool Hemoccult positive. [] Dragon Disclaimer: Dragon Disclaimer: This electronic medical record was generated, in whole or in part, using a voice recognition dictation system. Departure Departure: Impression: Primary Impression: Rectal bleeding Additional Impressions: Constipation Dehydration Disposition: ADMITTED INPATIENT Admitting Physician: Florencia Bro Condition: STABLE Referrals: FLORENCIA BRO MD (PCP) YNES JACOBO DO May 14, 2021 13:12
[2021-05-14] MEDS ORDERED: PANTOPRAZOLE IV 40 MG VIAL. IVP ONE (13:15)
[2021-05-14 13:24] LABS: BASO % 0 % (0-3); EOS # 0.1 x10^3/uL (0.0-0.7); EOS % 1 % (0-3); HEMOGLOBIN 18.4 g/dL (12.0-15.5); LYMPH % 10 % (24-48); MEAN CORPUSCULAR HEMOGLOBIN 30 pg (25-35); MEAN CORPUSCULAR HGB CONC 33 g/dL (31-37); MEAN CORPUSCULAR VOLUME 90 fL (79-100); MONO # 0.7 x10^3/uL (0.0-1.1); MONO % 7 % (0-9); NEUT # 7.9 x10^3uL (1.8-7.7); NEUT % 82 % (31-73); PLATELET COUNT 383 x10^3/uL (140-400); RED BLOOD COUNT 6.23 x10^6/uL (3.50-5.40); RED CELL DISTRIBUTION WIDTH 16.2 % (11.5-14.5); WHITE BLOOD COUNT 9.7 x10^3/uL (4.0-11.0)
[2021-05-14 13:26] LABS: CALCIUM 9.6 mg/dL (8.5-10.1); GFR 54.3; POTASSIUM 3.9 mmol/L (3.5-5.1)
[2021-05-14] MEDS ORDERED: IOHEXOL 300 MG/ML 75 ML VIAL. IV ONE (13:30)
[2021-05-14 13:32] LABS: ALBUMIN 3.5 g/dL (3.4-5.0); ALBUMIN/GLOBULIN RATIO 0.7 (1.0-1.7); TOTAL BILIRUBIN 0.5 mg/dL (0.2-1.0); TOTAL PROTEIN 8.6 g/dL (6.4-8.2)
--- NOTE | 2021-05-14 14:20 | RAD ---
EXAM: Abdomen and pelvis CT with intravenous contrast. HISTORY: Rectal bleeding. Constipation. TECHNIQUE: Computed tomographic images of the abdomen and pelvis were obtained following the administ ration of intravenous contrast. Multiplanar reformatting was performed. *One or more of the following individualized dose reduction techniques were utilized for this examina tion: 1. Automated exposure control. 2. Adjustment of the mA and/or kV according to patient size. 3. Use of iterative reconstruction technique. COMPARISON: 08/07/2020. FINDINGS: Evaluation of the lower thorax demonstrates left greater than right lower lobe interstitial infiltrate, atelectasis or scarring. There is emphysema. There is coronary artery atherosclerosis. There is a 9 mm hypodense lesion within the hepatic dome. There is a 3 mm hypodense lesion within the lateral right hepatic lobe. There is slight hyperdensity along the dependent portion of the gallblad trini which may be due to volume averaging of the gallbladder wall or cholelithiasis. The pancreas is u nremarkable. The spleen is mildly enlarged. There is bilateral renal cortical thinning and scarring. There is a small simple cyst within the ante rior mid zone of the left kidney. There is no suspicious renal lesion. There is no hydronephrosis. There is no appendicitis. There is a moderate amount of colonic stool. There is a large amount of for med stool within the rectum. There is rectal wall thickening and surrounding fatty stranding. There i s distal colonic diverticulosis. There is urinary bladder wall thickening. There is a small amount of free fluid within the left lower quadrant. There is calcified atherosclerotic plaque involving the aorta and aortic branch vessels. There is no lymphadenopathy. There is a transitional lumbosacral segment. This is considered a partially sacraliz ed L5 segment based on this dictation. There is partial ankylosis of the sacralized right aspect of L 5 with the sacrum. Based on this numbering system, there are chronic appearing compression fractures of T12, L2, L3 and L4. There is a left hip arthroplasty. IMPRESSION: 1. Large amount of formed stool within the rectum likely due to fecal impaction. There is superimpose d rectal wall thickening and surrounding inflammatory changes likely due to proctitis. 2. Distal colonic diverticulosis. There is no convincing diverticulitis. 3. Small hypodense lesions within the liver. In the absence of known malignancy, these are likely cys ts or hemangiomas. These may be too small to characterize sonographically. 4. Mild splenomegaly. 5. Renal cortical thinning and scarring and small simple left renal cyst. Follow-up is not routinely performed for simple cysts. 6. Pulmonary emphysema with left greater than right lower lobe or interstitial infiltrate, atelectasi s or scarring. This is decreased compared to the prior exam. 7. Urinary bladder wall thickening. This may be due to cystitis. Correlate with urinalysis. 8. Possible cholelithiasis or gallbladder sludge. 9. Multiple chronic appearing vertebral compression fractures. Electronically signed by: Andria Grace MD (05/14/2021 2:18 PM) [id number]
[2021-05-14 14:53] LABS: FECAL OB PT POSITIVE (NEG)
[2021-05-14] MEDS ORDERED: SODIUM PHOSPHATES 19/7GM 133 ML ENEMA. PR ONE (15:30)
[2021-05-14] MEDS ORDERED: GLYCERIN ADULT 1 SUPP.RECT. PR ONE (15:30)
[2021-05-14] MEDS ORDERED: BISACODYL 10 MG SUPP.RECT PR ONE (15:30)
[2021-05-14 16:16] LABS: BILIRUBIN,URINE NEG (NEG); CLARITY,URINE CLEAR; COLOR,URINE YELLOW; GLUCOSE,URINE NEG (NEG)
[2021-05-14 16:17] LABS: BACTERIA,URINE MOD /HPF (0-FEW); NITRITE,URINE NEG (NEG); SQUAMOUS EPITHELIAL CELL,UR FEW /LPF; UROBILINOGEN,URINE 0.2 mg/dL (0.2 mg/dL)
[2021-05-14] MEDS ORDERED: ONDANSETRON PF 4 MG/2 ML VIAL. IVP PRN (16:30)
[2021-05-14 17:43] VITALS: BP 170/87
--- NOTE | 2021-05-14 17:52 | NUR ---
PATIENT IS A 75 Y O FEMALE ARRIVED VIA EMS. PATIENT IS CALM AND COOPERATIVE UPON ASSESSMENT, DENIES ANY PAIN AT THIS TIME, STATED SHE HAS BEEN HAVING BOWEL PROBLEMS FOR 2 WEEKS. PATIENT DENIED ANY N/V. PATIENT IS ORIENTED TO THE ROOM AND HOSPITAL POLICIES.PATIENT IS CURRENTLY IN A BED RESTING.
[2021-05-14] MEDS ORDERED: BISACODYL 10 MG SUPP.RECT PR PRN (18:45)
[2021-05-14] MEDS ORDERED: IV 1/2 NORMAL SALINE 1,000 ML IV PRN (18:45)
[2021-05-14] MEDS: LACTOBACILLUS RHAMNOSUS GG 1 CAPSULE. PO SCH (21:00)
[2021-05-15 07:28] VITALS: BP 183/86
[2021-05-15] MEDS: LACTOBACILLUS RHAMNOSUS GG 1 CAPSULE. PO SCH ×2 (07:45→19:44)
[2021-05-15] MEDS: METOPROLOL SUCC 24HR ER 25 MG TAB.ER.24H. PO SCH (07:45)
[2021-05-15] MEDS: ASPIRIN ENTERIC COATED 81 MG TABLET.DR. PO SCH (07:45)
[2021-05-15] MEDS: SERTRALINE 100 MG TABLET. PO SCH (07:46)
[2021-05-15] MEDS: POTASSIUM CHLORIDE 10 MEQ TABLET.ER. PO SCH (07:46)
[2021-05-15] MEDS: amLODIPine BESYLATE 5 MG TABLET PO SCH (07:46)
[2021-05-15] MEDS: PANTOPRAZOLE 40 MG TABLET. PO SCH (07:46)
[2021-05-15] MEDS: SMZ/TMP 800/160MG TABLET. PO SCH (09:00)
[2021-05-15 09:32] VITALS: BP 162/70
[2021-05-15] MEDS: DOCUSATE SODIUM 100 MG CAPSULE PO SCH ×2 (10:45→19:44)
[2021-05-15 11:35] LABS: HEMATOCRIT 53.1 % (36.0-47.0); HEMOGLOBIN 17.5 g/dL (12.0-15.5)
[2021-05-15 14:28] VITALS: BP 175/80
[2021-05-15 15:06] VITALS: BP 162/84
--- NOTE | 2021-05-15 15:23 | NUR ---
PATIENT IS C/O CONSTIPATION, PATIENT WAS GIVEN PRUNE JUICE AND ASSISTED TO THE BED SIDE COMMODE. PATIENT TRIED TO HAVE A BOWEL MOVEMENT WITHOUT SUCCESS. PATIENT WAS ASSISTED MANUALLY WITH BOWEL MOVEMENT BY THIS RN. PATIENT IS CURRENTLY RESTING IN A BED.
--- NOTE | 2021-05-15 17:28 | PN ---
SUBJECTIVE: Admitted yesterday for severe abdominal pain, rectal bleeding. The patient had severe obstipation, constipation. The patient is markedly crippled from a history of a stroke, unable to move her bowels. The patient according to the CAT scans had a large amount of formed stool within the rectum, fecal impaction, wall thickening, surrounding inflammatory changes, likely due to proctitis. The patient otherwise had some splenomegaly and pulmonary emphysema. She has a long history of smoking. The patient otherwise was admitted. She is doing reasonably well, had a little bit of a bowel movement and will continued to be monitored very carefully on that. OBJECTIVE: VITAL SIGNS: Her blood pressure was elevated at 183/86, respiratory rate 20, pulse 100, afebrile, 93 on room air. GENERAL: The patient is COVID negative. LUNGS: Diminished, but basically clear. CARDIOVASCULAR: Regular sinus rhythm, S1, S2, without murmur, rub, thrill, or extra heart sound. ABDOMEN: Soft, markedly protuberant, tender in that left lower quadrant area. Continue to be monitored carefully, make further evaluation on her as indicated. IMPRESSION: Fecal impaction, rectal bleeding, essential hypertension. PLAN: Continue to monitor carefully here on the floor. MARGIE/LYNDSAY DR: Manfred TID: [id number]
[2021-05-15] MEDS: traZODone 150 MG TABLET. PO SCH (19:44)
[2021-05-15 21:45] VITALS: BP 153/78
[2021-05-16 05:50] VITALS: BP 167/102
[2021-05-16] MEDS: METOPROLOL SUCC 24HR ER 25 MG TAB.ER.24H. PO SCH (08:48)
[2021-05-16] MEDS: amLODIPine BESYLATE 5 MG TABLET PO SCH (08:49)
[2021-05-16] MEDS: ASPIRIN ENTERIC COATED 81 MG TABLET.DR. PO SCH (08:49)
[2021-05-16] MEDS: PANTOPRAZOLE 40 MG TABLET. PO SCH (08:50)
[2021-05-16] MEDS: SERTRALINE 100 MG TABLET. PO SCH (08:50)
[2021-05-16] MEDS: DOCUSATE SODIUM 100 MG CAPSULE PO SCH ×2 (08:50→20:55)
[2021-05-16] MEDS: LACTOBACILLUS RHAMNOSUS GG 1 CAPSULE. PO SCH ×2 (08:50→20:55)
[2021-05-16] MEDS: POTASSIUM CHLORIDE 10 MEQ TABLET.ER. PO SCH (08:52)
[2021-05-16] MEDS: SMZ/TMP 800/160MG TABLET. PO SCH (09:00)
[2021-05-16 11:09] VITALS: BP 145/83
[2021-05-16 15:06] VITALS: BP 135/84
--- NOTE | 2021-05-16 17:45 | EKG ---
[address] [address] Test Date: 2021-05-16 Test Time: 16:28:45 Pat Name: WILLY PALENCIA Department: Room: 111 A Gender: F [employer]ume Rental Clerk: : [id number] Requested By: FLORENCIA BRO Order Number: [id number] Reading MD: Konstantin Carroll Measurements Intervals [place] Rate: 93 P: 27 TN: 150 QRS: -8 QRSD: 78 T: 47 QT: 378 QTc: 473 Interpretive Statements SINUS RHYTHM LEFTWARD AXIS QRS(T) CONTOUR ABNORMALITY CONSIDER ANTEROSEPTAL MYOCARDIAL DAMAGE CONSISTENT WITH INFERIOR INFARCT PROBABLY OLD ABNORMAL ECG Electronically Signed On 05-17-2021 12:42:03 CDT by Konstantin Carroll
[2021-05-16 19:59] VITALS: BP 151/82
[2021-05-16] MEDS: traZODone 150 MG TABLET. PO SCH (20:56)
[2021-05-17 06:15] VITALS: BP 147/81
[2021-05-17] MEDS: LACTOBACILLUS RHAMNOSUS GG 1 CAPSULE. PO SCH ×2 (08:29→19:18)
[2021-05-17] MEDS: ASPIRIN ENTERIC COATED 81 MG TABLET.DR. PO SCH (08:29)
[2021-05-17] MEDS: METOPROLOL SUCC 24HR ER 25 MG TAB.ER.24H. PO SCH (08:30)
[2021-05-17] MEDS: PANTOPRAZOLE 40 MG TABLET. PO SCH (08:30)
[2021-05-17] MEDS: POTASSIUM CHLORIDE 10 MEQ TABLET.ER. PO SCH (08:30)
[2021-05-17] MEDS: amLODIPine BESYLATE 5 MG TABLET PO SCH (08:30)
[2021-05-17] MEDS: DOCUSATE SODIUM 100 MG CAPSULE PO SCH ×2 (08:30→19:18)
[2021-05-17] MEDS: SERTRALINE 100 MG TABLET. PO SCH (08:30)
[2021-05-17] MEDS: SMZ/TMP 800/160MG TABLET. PO SCH (08:33)
--- NOTE | 2021-05-17 09:14 | PN ---
DATE: 05/16/2021 SUBJECTIVE: The patient admitted with severe abdominal pain and obstipation. The patient has been having some better bowel movements, but still somewhat impacted. Her hemoglobin has come down to 17.5 and 53 from 18 and 56 and otherwise, the patient seems to be making relatively good progress. She is COVID negative. OBJECTIVE: VITAL SIGNS: Blood pressure 130/80, respiratory rate 18, pulse 98, afebrile. GENERAL: The patient is alert, baseline for her. She has some trouble with speech. LUNGS: Diminished throughout, poor movement of air. CARDIOVASCULAR: Regular sinus rhythm, S1, S2 with a dropped beat. EXTREMITIES: No clubbing, cyanosis or edema. NEUROLOGIC: The patient was alert and oriented, baseline for her. She does have marked weakness in her left arm with marked contractures secondary to her stroke and the patient otherwise has severe musculoskeletal atrophy and generalized weakness throughout her body. IMPRESSION: Abdominal pain with impaction, ispensation, splenomegaly, pulmonary emphysema, urinary bladder wall thickness. PLAN: Continue to monitor the patient, accordingly make further evaluation on her as indicated per those results. We will continue with laxatives and hopefully control this problem and have it controlled, so she does not go through this again. CHARI/INDIRA/DENI DR: Manfred TID: [id number]
[2021-05-17 10:41] VITALS: BP 136/76
[2021-05-17 14:50] VITALS: BP 132/76
[2021-05-17] MEDS: traZODone 150 MG TABLET. PO SCH (19:19)
[2021-05-17 19:28] VITALS: BP 152/70
[2021-05-17 23:24] VITALS: BP 147/79
--- NOTE | 2021-05-18 02:38 | PN ---
DATE: 05/17/2021 SUBJECTIVE: A 75-year-old female in with obstipation, constipation, abdominal pain, history of a right-sided CVA with left sided hemiparesis. She is making fair progress. She has had multiple bowel movements and still working with physical and occupational therapy. Multiple compression fractures of the lumbar spine. OBJECTIVE: VITAL SIGNS: Blood pressure 132/76, respiratory rate 20, pulse 88, afebrile, 95 on room air. The patient is COVID negative. LUNGS: Diminished, but clear. CARDIOVASCULAR: Regular sinus rhythm, S1, S2. 1/6 systolic ejection murmur. ABDOMEN: Soft, nontender, no rebound or guarding. Positive bowel sounds presently now. IMPRESSION: Therefore, abdominal pain, obstipation, impaction, splenomegaly, pulmonary emphysema, compression fractures of the back, probable osteoporosis. JOE DR: Manfred TID: [id number]
--- NOTE | 2021-05-18 03:30 | NUR ---
ASSUMED CARE OF PT AT THIS TIME. REPORT RECEIVED FROM PRABHU GARIBAY. PT CURRENTLY RESTING COMFORTABLY IN BED WITH CALL LIGHT IN REACH.
[2021-05-18 05:56] VITALS: BP 150/79
[2021-05-18] MEDS: LACTOBACILLUS RHAMNOSUS GG 1 CAPSULE. PO SCH (08:03)
[2021-05-18] MEDS: POTASSIUM CHLORIDE 10 MEQ TABLET.ER. PO SCH (08:03)
[2021-05-18] MEDS: SERTRALINE 100 MG TABLET. PO SCH (08:03)
[2021-05-18] MEDS: PANTOPRAZOLE 40 MG TABLET. PO SCH (08:04)
[2021-05-18] MEDS: METOPROLOL SUCC 24HR ER 25 MG TAB.ER.24H. PO SCH (08:04)
[2021-05-18] MEDS: DOCUSATE SODIUM 100 MG CAPSULE PO SCH (08:04)
[2021-05-18] MEDS: ASPIRIN ENTERIC COATED 81 MG TABLET.DR. PO SCH (08:04)
[2021-05-18] MEDS: amLODIPine BESYLATE 5 MG TABLET PO SCH (08:06)
[2021-05-18 09:28] VITALS: BP 133/73
[2021-05-18] MEDS ORDERED: DOCU-109 PO (09:34)
[2021-05-18] MEDS ORDERED: TRAZ150T49 PO (09:34)
--- NOTE | 2021-05-18 09:35 | DISCH ---
DISCHARGE ORDERS DISCHARGE DATE: May 18, 2021 FINAL DIAGNOSIS abdominal pain obstipation Generalized weakness CONDITION AT DISCHARGE: Stable Code Status: Full SNF STAY <30 DAYS: Yes HOSPICE: No HOSPICE EVALUATE & TREAT: No ADMIT TO LTAC: No POST DISCHARGE ORDERS: ACTIVITY ORDERS: Resume previous activity WEIGHT BEARING STATUS: No restrictions DIET AFTER DISCHARGE: Cardiac CHECKS AFTER DISCHARGE: CHECKS AFTER DISCHARGE: Check blood press - daily TREATMENT/EQUIPMENT ORDERS: ADAPTIVE EQUIPMENT NEEDED: None DISCHARGE MEDICATIONS: Home Meds Active Scripts Quetiapine Fumarate (QUETIAPINE FUMARATE) 50 Mg Tablet, 50 MG PO HS for insomnia, #30 TAB 3 Refills Prov:FLORENCIA BRO MD 08/14/20 Nystatin (NYSTOP) 60 Gm Powder, 1 LYNDSAY TP BID for antifungal, #1 BOT 2 Refills apply to irritated area twice a day Prov:FLORENCIA BRO MD 08/14/20 Lactobacillus Rhamnosus Gg (CULTURELLE) 1 Each Cap.sprink, 1 CAP PO BID for probiotic for 60 Days, #120 CAP 3 Refills Prov:FLORENCIA BRO MD 08/14/20 Bisacodyl (BISACODYL) 10 Mg Supp.rect, 10 MG LA PRN DAILY PRN for CONSTIPATION, #90 SUPP.RECT 3 Refills Prov:FLORENCIA BRO MD 08/14/20 Sulfamethoxazole/Trimethoprim (BACTRIM DS TABLET) 1 Each Tablet, 1 EACH PO DAILY for ANTIBIOTIC for 30 Days, #30 TAB 3 Refills Take 1/2 tablet daily Prov:FLORENCIA BRO MD 08/14/20 Reported Medications Potassium Chloride (POTASSIUM CHLORIDE) 10 Meq Capsule.er, 10 MEQ PO DAILY for SUPPLEMENT NOT GIVEN IN THE HOSPITAL NEXT DOSE DUE: DATE: RESTART TOMORROW TIME: AM 08/26/15 Sertraline Hcl (ZOLOFT) 100 Mg Tablet, 100 MG PO DAILY for DEPRESSION LAST DOSE GIVEN: DATE: TODAY TIME: AM NEXT DOSE DUE: DATE: TOMORROW TIME: AM 08/26/15 Metoprolol Succinate (METOPROLOL SUCCINATE ( XL )) 25 Mg Tab.er.24h, 25 MG PO DAILY for HIGH BLOOD PRESSURE LAST DOSE GIVEN: DATE: TODAY TIME: AM NEXT DOSE DUE: DATE: TOMORROW TIME: AM 08/26/15 Aspirin (ASPIR-LOW) 81 Mg Tablet.dr, 81 MG PO DAILY for HEART HEALTH LAST DOSE GIVEN: DATE: TODAY TIME: AM NEXT DOSE DUE: DATE: TOMORROW TIME: AM 08/26/15 Esomeprazole Magnesium (NEXIUM CAPSULE) 40 Mg Capsule.dr, 40 MG PO DAILY for PREVENT HEARTBURN LAST DOSE GIVEN: DATE: TODAY TIME: BEFORE BREAKFAST NEXT DOSE DUE: DATE: TOMORROW TIME: BEFORE BREAKFAST 08/26/15 Amlodipine Besylate (AMLODIPINE BESYLATE) 5 Mg Tablet, 5 MG PO DAILY for HIGH BLOOD PRESSURE LAST DOSE GIVEN: DATE: TODAY TIME: AM NEXT DOSE DUE: DATE: TOMORROW TIME: AM 08/26/15 FLORENCIA BRO MD May 18, 2021 09:35
--- NOTE | 2021-05-18 14:40 | NUR ---
PATIENT IS DISCHARGED TO [facility], REPORT GIVEN TO STAFF NURSE SADEI. PATIENT LEFT ROOM 111 VIA W/C ACCOMP BY JEREMI ANGULO. PATIENT IS TAKEN TO REHAB CENTER BY TRANSPORTATION PROVIDED BY FACILITY.
--- NOTE | 2021-05-21 12:22 | DS ---
DATE OF DISCHARGE: 05/18/2021 HOSPITAL COURSE: This is a 75-year-old female post stroke several years ago actually, but has severe contractures of her left arm and leg, has some difficulty in speech. She had a severe right-sided CVA. She came in with severe abdominal pain. The patient has been having problems with fecal impaction, rectal bleeding and essential hypertension. The patient's blood pressure was in the 180s/86 that was brought down gently into the 130/73, respiratory rate 20, pulse 80. The patient's labs showed a hemoglobin of 7.5 and 53 showing the degree of dehydration. The patient also is a heavy smoker. The patient also had an elevated total protein of 8.6, albumin was normal. COVID negative. Urine was unremarkable. She did have blood in her stool, but she had fecal impaction, obstipation, constipation. The CAT scan demonstrated that clearly with diverticulosis, splenomegaly, renal cortical thinning, pulmonary emphysema, and possible cholelithiasis. The patient made excellent progress with the use of laxatives and the like. She had good bowel movements. The patient was discharged to a nursing facility as she required intensive physical and occupational therapy to regain some of her strengths. IMPRESSION: Abdominal pain with constipation, obstipation, rectal bleeding, polycythemia vera, history of right-sided cerebrovascular accident, left-sided hemiparesis, fecal impaction, splenomegaly, pulmonary emphysema, compression fractures of the spine, severe osteoporosis, hyperglycemia. The patient will be on a regular diet, stool softeners, bowel hygiene and follow up accordingly as an outpatient from the nursing facility. See KAEL. CHARI/DALI/CARLOS MAN: Manfred TID: [id number]
== END 2021-05-18 14:40 | DRG 377 ==
LOC: ER 12:32 → 1 SOUTH 16:25 → ER 17:02
PROVIDERS: ADMIT Family Medicine; ATTEND Family Medicine
DX: K57.91 Diverticulosis of intestine, part unspecified, without perforation or abscess with bleeding (principal); R53.2 Functional quadriplegia; M48.50XA Collapsed vertebra, not elsewhere classified, site unspecified, initial encounter for fracture; I69.354 Hemiplegia and hemiparesis following cerebral infarction affecting left non-dominant side; K25.4 Chronic or unspecified gastric ulcer with hemorrhage; K26.4 Chronic or unspecified duodenal ulcer with hemorrhage; K62.5 Hemorrhage of anus and rectum; K56.41 Fecal impaction; D50.0 Iron deficiency anemia secondary to blood loss (chronic); E86.0 Dehydration; F17.200 Nicotine dependence, unspecified, uncomplicated; I10 Essential (primary) hypertension; J43.9 Emphysema, unspecified; M81.0 Age-related osteoporosis without current pathological fracture; Z20.822 Contact with and (suspected) exposure to COVID-19; Z90.710 Acquired absence of both cervix and uterus; Z96.649 Presence of unspecified artificial hip joint; Z96.659 Presence of unspecified artificial knee joint
CPT/HCPCS: 36415; 74177; 80053; 81001; 82274; 85014; 85018; 85025; 87086; 87426; 93005; 96361; 96374; C9113; P9612; Q9967; U0003; 99285-25; J7030

== ENCOUNTER 2021-06-16 12:34 | Emergency (ER) | payer MEDICARE, OTHER ==
[~2021-06-16] VITALS: Ht 172.7 cm; Wt 55.9 kg
[~2021-06-16 12:34] MED LIST changes: +DOCU-109 PO; +TRAZ150T49 PO
[2021-06-16] MEDS ORDERED: MORPHINE SULFATE 4 MG/ML DISP.SYRIN. IV PRN (13:15)
--- NOTE | 2021-06-16 14:19 | RAD ---
CT HEAD AND C-SPINE WO History: Reason: fall / Spl. Instructions: / History: . Pain Comparison: None. Technique: Noncontrast CT imaging was performed of the head and cervical spine. Coronal and sagittal reconstructions were performed. Exposure: One or more of the following individualized dose reduction techniques were utilized for thi s examination: 1. Automated exposure control 2. Adjustment of the mA and/or kV according to patient size 3. Use of iterative reconstruction technique. Findings: Motion degraded evaluation. Head CT: Acute right cerebral convexity subdural hematoma. Maximal thickness measures 1.4 cm. Mild le ftward midline shift measures 8 mm. Mass effect on the right lateral ventricle with decreased size. S mall subdural hematoma component along the right posterior falx and tentorium. Additional extra-axial hemorrhage along the posterior clivus extending inferiorly. Small hypodensity within the right tempo ral region, may relate to small subarachnoid hemorrhage although motion degrades evaluation. Large right MCA territory infarct with encephalomalacia and gliosis. Moderate additional foci of decr eased attenuation within the hemispheric white matter, most often due to chronic microvascular ischem ia. Left anterior scalp soft tissue swelling and hematoma. Imaged orbits are unremarkable. Left maxillary sinus mucosal thickening with fluid. Left sphenoid sin us mucosal thickening. Mastoid air cells are clear. Degraded evaluation for calvarial fracture due to patient motion. Cervical spine CT: Grade 1 anterolisthesis C3 on C4 and C4 on C5. Intervertebral fusion C6-C7. Congenitally ununited pos terior arch C1. Mild T2 superior endplate compression deformity with linear lucency through the superior endplate (se brandy 8 image 33). Chronic appearing T1 anterior compression deformity. Additional chronic appearing T 3 inferior endplate compression deformity. Moderate degenerative disc changes most prominent C5-C6. Advanced facet arthropathy. Facet fusion lef t C4-C5. Facet fusion left C6-C7. No high-grade canal narrowing. C7-T1 prominent disc protrusion cont ributing to mild canal narrowing. Multilevel neuroforaminal narrowing. Severe pulmonary emphysema. Impression: Head CT: 1. Motion degraded examination. 2. Acute right cerebral convexity subdural hematoma with adjacent mass effect and leftward midline s hift. 3. Additional small subdural hematoma along the posterior falx and right tentorium as well as along the posterior clivus. 4. Left anterior scalp soft tissue swelling and hematoma. 5. Left maxillary and sphenoid sinus disease, can be seen with acute sinusitis in the appropriate cl inical setting. 6. Large chronic right MCA territory infarct. Cervical spine CT: 1. T2 superior endplate compression deformity with linear lucency through the superior endplate, may represent acute fracture although age indeterminate. If persistent clinical concern, MRI can better evaluate. 2. Moderate cervical spondylosis. FOR INTERNAL CODING PURPOSES Critical result: Findings discussed with Ann Marie Garcia at 06/16/2021 2:12 PM. RESULT CODE: (C) Electronically signed by: Babatunde Sharp DO (06/16/2021 2:17 PM) [facility]
[2021-06-16 14:20] VITALS: BP 165/87
[2021-06-16 14:48] LABS: BASO # 0.1 x10^3/uL (0.0-0.2); BASO % 0 % (0-3); EOS % 0 % (0-3); HEMATOCRIT 52.3 % (36.0-47.0); HEMOGLOBIN 17.4 g/dL (12.0-15.5); LYMPH % 8 % (24-48); MEAN CORPUSCULAR HEMOGLOBIN 30 pg (25-35); MEAN CORPUSCULAR HGB CONC 33 g/dL (31-37); MEAN CORPUSCULAR VOLUME 89 fL (79-100); MONO # 0.7 x10^3/uL (0.0-1.1); MONO % 5 % (0-9); NEUT # 10.4 x10^3uL (1.8-7.7); NEUT % 86 % (31-73); PLATELET COUNT 269 x10^3/uL (140-400); RED BLOOD COUNT 5.89 x10^6/uL (3.50-5.40); RED CELL DISTRIBUTION WIDTH 16.6 % (11.5-14.5); WHITE BLOOD COUNT 12.1 x10^3/uL (4.0-11.0)
--- NOTE | 2021-06-16 14:48 | PHYS DOC ---
Past History Past Medical History: Hypertension, Stroke Additional Past Medical Histor: BACK PAIN (ANN MARIE GARCIA APRN) Past Surgical History: Hip Replacement, Hysterectomy, Knee Replacement (ANN MARIE GARCIA APRN) Alcohol Use: None Drug Use: None (ANN MARIE GARCIA APRN) General Adult EDM: Chief Complaint: MECHANICAL FALL HPI: HPI: Patient is a 75-year-old female who presents after a fall at home. states "she was sitting in a swivel chair in the kitchen and when she turned she fell out of the chair, and hit her head on the side of the wall". Patient was reporting head and neck pain. Patient was placed in cervical collar on arrival. Denies loss of consciousness. Patient has a past history of previous stroke and has dysarthria from stroke. states that patient is at baseline neurologically. No other visible injuries noted. Patient is hemodynamically stable upon arrival. Past health history of CVA and chronic back pain. (ANN MARIE GARCIA APRN) Review of Systems: Review of Systems: ROS At least 10 ROS systems have been reviewed and are negative except as documented in the HPI. General: Negative except as outlined in HPI above. Skin: Negative except as outlined in HPI above. HEENT: Negative except as outlined in HPI above. Neck: Negative except as outlined in HPI above. Respiratory: Negative except as outlined in HPI above.. Cardiovascular: Negative except as outlined in HPI above. Abdomen: Negative except as outlined in HPI above. : Negative except as outlined in HPI above. Back/MSK: Negative except as outlined in HPI above. Neuro: Negative except as outlined in HPI above. Psych: Negative except as outlined in HPI above. (ANN MARIE GARCIA APRN) Current Medications: Current Meds: Current Medications Medications (Trade) Dose Ordered Sig/Karo Start Time Stop Time Status Last Admin Dose Admin Morphine Sulfate (Morphine 4mg Syringe) 4 mg PRN 1X PRN 06/16/21 13:15 06/16/21 14:12 4 MG (ANN MARIE GARCIA APRN) Allergies: Allergies: Allergies Coded Allergies Type Severity Reaction Last Updated Verified No Known Drug Allergies 08/26/15 No (ANN MARIE GARCIA APRN) Physical Exam: PE: Constitutional: Well developed, well nourished, no acute distress, non-toxic appearance. [] HENT: Normocephalic, atraumatic, bilateral external ears normal, oropharynx moist, no oral exudates, nose normal. [] Eyes: PERRLA, EOMI, conjunctiva normal, no discharge. [] Neck: Midline neck tenderness, patient in cervical collar Cardiovascular:Heart rate regular rhythm, no murmur [] Lungs & Thorax: Bilateral breath sounds clear to auscultation [] Abdomen: Bowel sounds normal, soft, no tenderness, no masses, no pulsatile masses. [] Skin: Warm, dry, no erythema, no rash. [] Back: No tenderness, no CVA tenderness. [] Extremities: No tenderness, no cyanosis, no clubbing, ROM intact, no edema. [] Neurologic: Alert and oriented X 3, normal motor function, normal sensory function, no focal deficits noted. [] Psychologic: Affect normal, judgement normal, mood normal. [] (ANN MARIE GARCIA APRN) Current Patient Data: Vital Signs: Vital Signs Date Time Temp Pulse Resp B/P (MAP) Pulse Ox O2 Delivery O2 Flow Rate FiO2 06/16/21 12:34 97.7 95 26 185/102 (129) 94 Room Air (ANN MARIE GARCIA APRN) EKG: EKG: [] (ANN MARIE GARCIA APRN) Radiology/Procedures: Radiology/Procedures: []CT HEAD AND C-SPINE WO History: Reason: fall / Spl. Instructions: / History: . Pain Comparison: None. Technique: Noncontrast CT imaging was performed of the head and cervical spine. Coronal and sagittal reconstructions were performed. Exposure: One or more of the following individualized dose reduction techniques were utilized for this examination: 1. Automated exposure control 2. Adjustment of the mA and/or kV according to patient size 3. Use of iterative reconstruction technique. Findings: Motion degraded evaluation. Head CT: Acute right cerebral convexity subdural hematoma. Maximal thickness measures 1.4 cm. Mild leftward midline shift measures 8 mm. Mass effect on the right lateral ventricle with decreased size. Small subdural hematoma component along the right posterior falx and tentorium. Additional extra-axial hemorrhage along the posterior clivus extending inferiorly. Small hypodensity within the right temporal region, may relate to small subarachnoid hemorrhage although motion degrades evaluation. Large right MCA territory infarct with encephalomalacia and gliosis. Moderate additional foci of decreased attenuation within the hemispheric white matter, most often due to chronic microvascular ischemia. Left anterior scalp soft tissue swelling and hematoma. Imaged orbits are unremarkable. Left maxillary sinus mucosal thickening with fluid. Left sphenoid sinus mucosal thickening. Mastoid air cells are clear. Degraded evaluation for calvarial fracture due to patient motion. Cervical spine CT: Grade 1 anterolisthesis C3 on C4 and C4 on C5. Intervertebral fusion C6-C7. Congenitally ununited posterior arch C1. Mild T2 superior endplate compression deformity with linear lucency through the superior endplate (series 8 image 33). Chronic appearing T1 anterior compression deformity. Additional chronic appearing T3 inferior endplate compression deformity. Moderate degenerative disc changes most prominent C5-C6. Advanced facet arthropathy. Facet fusion left C4-C5. Facet fusion left C6-C7. No high-grade canal narrowing. C7-T1 prominent disc protrusion contributing to mild canal narrowing. Multilevel neuroforaminal narrowing. Severe pulmonary emphysema. Impression: Head CT: 1. Motion degraded examination. 2. Acute right cerebral convexity subdural hematoma with adjacent mass effect and leftward midline shift. 3. Additional small subdural hematoma along the posterior falx and right tentorium as well as along the posterior clivus. 4. Left anterior scalp soft tissue swelling and hematoma. 5. Left maxillary and sphenoid sinus disease, can be seen with acute sinusitis in the appropriate clinical setting. 6. Large chronic right MCA territory infarct. Cervical spine CT: 1. T2 superior endplate compression deformity with linear lucency through the superior endplate, may represent acute fracture although age indeterminate. If persistent clinical concern, MRI can better evaluate. 2. Moderate cervical spondylosis. FOR INTERNAL CODING PURPOSES Critical result: Findings discussed with Ann Marie Garcia at 06/16/2021 2:12 PM. RESULT CODE: (C) Electronically signed by: Babatunde Sharp DO (06/16/2021 2:17 PM) [facility] (ANN MARIE GARCIA APRN) Heart Score: C/O Chest Pain: No Risk Factors: Risk Factors: DM, Current or recent (<one month) smoker, HTN, HLP, family history of CAD, obesity. Risk Scores: Score 0 - 3: 2.5% MACE over next 6 weeks - Discharge Home Score 4 - 6: 20.3% MACE over next 6 weeks - Admit for Clinical Observation Score 7 - 10: 72.7% MACE over next 6 weeks - Early Invasive Strategies (ANN MARIE GARCIA APRN) Course & Med Decision Making: Course & Med Decision Making Pertinent Labs and Imaging studies reviewed. (See chart for details) 75-year-old female presents after a fall at home. Patient came by POV. Patient was placed in cervical collar on arrival. states patient fell out of her chair and fell against the wall. Patient was reporting headache and midline neck tenderness. Denies loss of consciousness. No other obvious injuries noted. Patient has a past stroke and has dysarthria. Patient is at baseline per . Denies blood thinners but does take a daily aspirin. Patient is hemodynamically stable upon arrival. CT shows acute right cerebral convexity subdural hematoma. Maximal thickness measures 1.4 cm. Mild leftward midline shift measures 8 mm. Mass effect on the right lateral ventricle with decreased size. Small subdural hematoma component along the right posterior falx and tentorium. Additional extra-axial hemorrhage along the posterior clivus extending inferiorly. CT also shows possible acute versus chronic T2 fracture. Spoke with Dr. Shafer at [facility] who will be accepting patient in the ICU for acute subdural hematoma. The decision was made to LifeFlight patient to [facility] so that patient care was not delayed. Patient was reporting an increase in pain. Patient given fentanyl for pain. Patient placed on 2 L nasal cannula. Spoke with Jacob, patient's , and informed him patient will be life flighted to [facility]. Patient agreed with transfer plan. Patient is hemodynamically stable upon disposition. (ANN MARIE GARCIA APRN) Course & Med Decision Making I was the Attending physician on the above date of service of this patient. This patient was evaluated, examined, treated, and dispositioned from the emergency department by the mid-level practitioner. I got involved in care at request of [facility] after imaging reports of subdural bleeds and T2 fracture. I personally saw patient and repeated certain aspects of history and physical exam. She remained at baseline mentation and hemodynamically stable. Patient's condition communicated to her and we disclosed need for emergent transfer to facility that could provide higher acuity of care. I advised [facility] contact [facility] who ultimately accepted patient transfer. I recommended need for aeromedical evacuation to [facility] given critical diagnosis. Critical Care Time This patient required critical care. Due to the fact that the patient required a significant amount of one on one physician - patient contact time, ordering and review of studies, arranging urgent treatment with development of a management plan, evaluation of patients response to treatment with frequent reassessments, and discussions with other providers this patient required 35 minutes of critical care time. Critical care time was indicated due to the inherent instability and/or potential for instability in this patient. The critical care time that is allocated to this patient is above and beyond any time spent on any other billable procedures performed on this patient. Electronically signed, Michelle Barahona DO (MICHELLE BARAHONA DO) [facility] Disclaimer: [facility] Disclaimer: This electronic medical record was generated, in whole or in part, using a voice recognition dictation system. (ANN MARIE GARCIA APRN) Departure Departure: Impression: Primary Impression: Subdural hematoma, acute Additional Impression: Compression fracture of T2 vertebra Disposition: 02 SHORT TERM HOSPITAL Condition: STABLE Referrals: FLORENCIA BRO MD (PCP) ANN MARIE GARCIA APRN Jun 16, 2021 14:48 MICHELLE BARAHONA DO Jun 17, 2021 07:13
[2021-06-16 14:59] LABS: CALCIUM 9.4 mg/dL (8.5-10.1); CREATININE 0.9 mg/dL (0.6-1.0); GFR 61.4; POTASSIUM 4.3 mmol/L (3.5-5.1)
[2021-06-16 15:06] LABS: ALBUMIN 3.6 g/dL (3.4-5.0); ALBUMIN/GLOBULIN RATIO 0.8 (1.0-1.7); TOTAL BILIRUBIN 0.7 mg/dL (0.2-1.0); TOTAL PROTEIN 8.2 g/dL (6.4-8.2)
== END 2021-06-16 15:44 | disposition short-term general hospital (02) ==
LOC: ER 12:34
DX: S06.5X9A Traumatic subdural hemorrhage with loss of consciousness of unspecified duration, initial encounter (principal); S22.028A Other fracture of second thoracic vertebra, initial encounter for closed fracture; I10 Essential (primary) hypertension; Z20.822 Contact with and (suspected) exposure to COVID-19; Z86.73 Personal history of transient ischemic attack (TIA), and cerebral infarction without residual deficits; W07.XXXA Fall from chair, initial encounter; Y93.89 Activity, other specified; Y92.89 Other specified places as the place of occurrence of the external cause; Y99.8 Other external cause status
CPT/HCPCS: 36415; 70450; 72125; 80053; 85025; 87426; 96374; 96375; 99285; C9803; J2270; J3010; U0003